=== PATIENT | female | born 1945 ===

== ENCOUNTER 2016-07-07 10:45 | Outpatient (RCR) | payer OTHER | END 2016-08-04 | disposition home or self-care (01) | LOC: PTY 10:45 | DX: M54.31 Sciatica, right side (principal); M16.11 Unilateral primary osteoarthritis, right hip; D72.829 Elevated white blood cell count, unspecified | CPT/HCPCS: 97110; 97116; G0283 ==

== ENCOUNTER 2016-08-07 11:00 | Outpatient (RCR) | payer OTHER | END 2016-09-01 | disposition home or self-care (01) | LOC: PTY 11:00 | DX: M54.31 Sciatica, right side (principal); M16.11 Unilateral primary osteoarthritis, right hip | CPT/HCPCS: 97110; G0283 ==